=== PATIENT | female | born 1980 | race African-American/Black ===

== ENCOUNTER 2017-09-28 14:48 | Emergency (ER) | payer SELFPAY, OTHER ==
[2017-09-28] MEDS: NAPROXEN 500 MG TABLET PO ×2 (15:25)
[2017-09-28] MEDS: diazePAM 5 MG TABLET PO ×2 (15:25)
[2017-09-28] MEDS: HYDROcodone/APAP 5/325MG 1 TAB TABLET PO ×2 (15:25)
== END 2017-09-28 15:40 | disposition home or self-care (01) ==
LOC: ER 14:48
DX: M54.5 Low back pain (principal); J44.9 Chronic obstructive pulmonary disease, unspecified; F12.10 Cannabis abuse, uncomplicated; F31.9 Bipolar disorder, unspecified; M19.90 Unspecified osteoarthritis, unspecified site; Z88.0 Allergy status to penicillin
CPT/HCPCS: 99284